=== PATIENT | male | born 1960 | race Caucasian/White ===

== ENCOUNTER 2022-05-24 01:43 | Day surgery (SDC) | payer OTHER, SELFPAY ==
[2022-05-18 14:37] VITALS: BMI 26.5
--- NOTE | 2022-05-18 14:51 | PC.NURSE ---
Report to the Outpatient Waiting Room, entrance under the green pavilion located off [facility], at time 0700 on date 05/24/22. OR Time: 0900. - You and your visitor will be asked a series of questions to screen for COVID 19 for your protection. - Only one visitor is allowed at this time. - The patient visitor is requested to leave or wait in car when not with patient. - A mask is required within the hospital. Patients may have clear liquids (water, carbonated beverages, clear teas, apple juice) until 3 hours prior to surgery with a maximum of 20 ounces. - No food from midnight until time of surgery Take the following medications with a SIP of water the morning of surgery: N/A Medications to discontinue per physician: N/A Date to take last dose: N/A Please no make-up, nail pashto, hairspray, perfume, deodorant, or body powder the day of surgery. No jewelry (including any body piercings) or valuables the day of surgery, leave them at home. Please take a shower or bath the night before, or the morning of, surgery with an antibacterial soap. Wear comfortable, loose fitting clothing. - Jewelry must be removed prior to entering the operating room. Rings and piercings that are not removed may be cut off. - The hospital will not accept responsibility for valuables. - Please leave all valuables, including medications, at home the day of surgery. If you are going home after surgery, a licensed tanker driver must drive you home. - NO public transportation without another adult. - We recommend that an adult stay with you for 24 hours following discharge. - We also recommend that you do not drive, make important decision, drink alcoholic beverages, or take any drugs that were not prescribed by your health care provider for at least 24 hours after your discharge time. Follow any additional instructions given to you from your surgeon. If you or anyone in your household have experienced Covid symptoms in the past week, please notify your surgeon or the nurse liaison at the phone number below for possible testing. Telephone instructions given to MARSHALL OLGUIN and asked if any additional questions and then verbalized understanding. Patient advised to call surgeon office or pre surgery nurse liaison [phone] if any additional questions.
--- NOTE | 2022-05-21 16:03 | P.PNAN_ITS ---
Anes - Initial Pre Proc Eval Procedure: Operation Date: 05/24/22 09:00 Proposed Procedures p Left Index Trigger Finger Release, Right Index Trigger Finger Release, - Varun Soto MD Date/Time: 05/21/22 16:03 Surgeon: Varun Soto MD Pre Op Diagnosis: Lt Index Trigger Finger, right Index Trigger Finge Patient Data Age: 61 Gender: M Height: 1.78 m Weight: 83.91 kg Allergies Allergy/AdvReac Type Severity Reaction Status Date / Time No Known Allergies Allergy Verified 05/18/22 14:37 Home Medications Medication Instructions Recorded Confirmed Type No Home Medications 05/13/22 05/18/22 History Patient hx anesthesia problems: none Family hx anesthesia problems: none Results Review: All pre-operative results and documents have been reviewed as part of the pre-operative evaluation. [facility] Past Medical History Medical History Arthritis Surgical History Surgical History History of carpal tunnel release of both wrists History of rotator cuff surgery Social History Social History Smoking status: Never smoker Alcohol intake: current Alcohol use details: 2/MONTH Substance use: never Substance use type: does not use Living arrangements: with family Additional occupation/education comments: Facility Tech Gender identity (if verbalized by the patient): Male Spiritual care concerns: No Anes - Eval Final PreProcedure Day of Procedure 05/21/22 16:03 Patient weight: overweight Heart: regular rate and rhythm Lungs: clear to auscultation and normal air movement Airway: Mallampati scale class II Neurological: alert and oriented Last oral intake: >/= 8 hours ASA classification: II Emergent: no Anesthetic plan: proceed Anesthesia type and monitoring: general GIVS Results Review: All pre-operative results and documents have been reviewed as part of the pre- operative evaluation. Informed Consent: The patient's anesthetic plan and its attendant risks and benefits were discussed with the patient/family/POA. Questions were solicited and answers provided to the satisfaction of the patient/family/POA.
[2022-05-24] MEDS: ACETAMINOPHEN 500 MG TABLET 1000 MG PO (08:00)
[2022-05-24] MEDS: KETOROLAC 15 MG/ML VIAL (*BKC) IV PUSH (08:00)
--- NOTE | 2022-05-24 08:14 | WPDHPUPDATE1 ---
History and Physical Update Update Date/Time: 05/24/22 08:14 History and Physical has been reviewed, including an updated exam of the patient. There are NO changes in the patient's condition. Risks, benefits, and alternatives have been discussed and questions answered. Patient agrees to proceed with procedure.
[2022-05-24 08:19] VITALS: BP 127/71; PULSE 86; RESP 14; TEMP 36.3; O2SAT 100
[2022-05-24] MEDS: LACTATED RINGERS 1,000 ML 30 ML IV CONT (08:25)
[2022-05-24] MEDS: ceFAZolin 2 GM/D5W 50 ML 2 GM/50 ML BAG IVPB (08:30)
[2022-05-24] MEDS: BUPIVACAINE HCL 0.25% PF 30 ML VIAL INFILTRATE (08:58)
[2022-05-24 09:10] VITALS: BP 82/51; PULSE 57; RESP 18; O2SAT 99
--- NOTE | 2022-05-24 09:20 | P.OP_ITS ---
Procedure Note - Detailed Date of Procedure 05/24/22 Pre-op Diagnosis Lt Index Trigger Finger, right Index Trigger Finge Post-op Diagnosis Same Procedure Performed right and left index trigger finger releases Surgeon Varun Soto MD Director Online Marketing Servando Cheung Anesthesia MAC and Local Description of Procedure The patient was identified and proper site identified. He was taken to the operating room and transferred to the OR table placing supine taking care to pad the torso and extremities. He was administered IV sedation. A nonsterile tourniquet was placed high on the right arm which was prepped and draped in the usual sterile fashion. Left upper extremity was prepped and draped in usual sterile fashion. Plan was to use an Esmarch bandage for the tourniquet on that side. Several cc of 1% plain lidocaine was injected into the subcutaneous tissue over the A1 christiane of the right index digit. The extremity was exsanguinated and the tourniquet was inflated to to 50 mmHg remaining up for about six minutes. A longitudinal incision was made over the A1 christiane. Subcutaneous tissue was bluntly dissected down to the christiane while protecting the neurovascular bundles. The A1 christiane was identified and then transected longitudinally in line with the incision and tendons. The tendons were delivered into the wound verifying the adequacy of the release. Hemostasis was carried out. The wound was irrigated with sterile saline. Skin edges were reapproximated with 4-0 nylon suture. Sterile dressing was applied. Tourniquet was released. The same procedure was performed on the left side for the left index digit A1 christiane with the exception that an Esmarch bandage was used to exsanguinate the hand and then was left as a tourniquet for 6 minutes around the distal forearm just proximal to the wrist . He tolerated the procedure well and was transferred back to a cart, then taken to the recovery area in stable condition. There were no known intraoperative complications. Estimated blood loss was negligible. Perioperative antibiotics were administered. Estimated Blood Loss 0 Tourniquet Time 12 ( 6 minutes for each upper extremity) Drains No Packing No Pathology None sent Complications No immediate complications Condition Stable Disposition PACU
[2022-05-24 09:25] VITALS: BP 84/52; PULSE 51; RESP 14; O2SAT 98
--- NOTE | 2022-05-24 09:37 | SUR.PHASEII ---
oral airway removed at 0936.
[2022-05-24 09:40] VITALS: BP 99/63; PULSE 64; RESP 16; O2SAT 99
[2022-05-24 10:10] VITALS: BP 116/72; PULSE 62; RESP 16
[2022-05-24 10:36] VITALS: BP 106/73; RESP 16
== END 2022-05-24 10:36 | disposition home or self-care (01) ==
PROVIDERS: PCP Family Medicine; Visit Provider Orthopaedic Surgery
PROC: (CPT 26055; principal; 2022-05-24 09:00)
DX: M65.321 Trigger finger, right index finger (principal); M65.322 Trigger finger, left index finger
CPT/HCPCS: 26055 ×2; A9270; J0690; J1885; J2250; J3010; J7120

== ENCOUNTER 2023-03-21 02:23 | Day surgery (SDC) | payer OTHER, SELFPAY ==
[2023-03-14 10:38] VITALS: BMI 26.2
--- NOTE | 2023-03-14 10:47 | PC.NURSE ---
Report to the Outpatient Waiting Room, entrance under the green pavilion located off [facility], at time 0930 on date 03/21/23. Planned Procedure Time: 1130. Time changes happen often and if your time is changed the preop area will call you the afternoon before. - You and your visitor will be asked to self-screen and do not enter if you have any COVID symptoms. - A mask is optional within the hospital at this time. Patients may have clear liquids (water, carbonated beverages, clear teas, apple juice) until 3 hours prior to surgery with a maximum of 20 ounces. 0830 - No food from midnight until time of surgery - Infants may have breast milk until 4 hours before surgery, formula 6 hours prior to surgery. - Children will be allowed to drink immediately following surgery. If applicable, please bring a bottle or sippy cup to assist with drinking. Juice, water, soda, and popsicles are readily available. For infants on formula, please bring formula the day of surgery. Pacifiers are allowed. Take the following medications with a SIP of water the morning of surgery: Atorvastatin, Zyrtec DO NOT STOP ANY OF YOUR OTHER PRESCRIPTION MEDICATIONS PRIOR TO SURGERY ?EXCEPT THE FOLLOWING Medications to discontinue per physician n/a Date to take last dose n/a Please no make-up, nail amharic, hairspray, perfume, deodorant, or body powder the day of surgery. No jewelry (including any body piercings) or valuables the day of surgery, leave them at home. Please take a shower or bath the night before, or the morning of, surgery with an antibacterial soap. Wear comfortable, loose fitting clothing. Children are encouraged to wear pajamas. - Jewelry must be removed prior to entering the operating room. Rings and piercings that are not removed may be cut off. - The hospital will not accept responsibility for valuables. - Please leave all valuables, including medications, at home the day of surgery. If you are going home after surgery, a licensed [employer] company flatbed driver must drive you home. - NO public transportation without another adult if you receive anesthesia. - We recommend that an adult stay with you for 24 hours following discharge. - We also recommend that you do not drive, make important decision, drink alcoholic beverages, or take any drugs that were not prescribed by your health care provider for at least 24 hours after your discharge time. For Pediatric surgeries, we recommend two adults accompany the child home. Follow any additional instructions given to you from your surgeon. If you or anyone in your household have experienced Covid symptoms in the past week, please notify your surgeon or the nurse liaison at the phone number below for possible testing. Telephone instructions given to Jose Antoine and asked if any additional questions and then verbalized understanding. Patient advised to call surgeon office or pre surgery nurse liaison [phone] if any additional questions.
--- NOTE | 2023-03-18 16:11 | P.PNAN_ITS ---
Anes - Initial Pre Proc Eval Procedure: Operation Date: 03/21/23 09:30 Proposed Procedures p Left Third Trigger Finger Release - Varun Soto MD Date/Time: 03/18/23 16:11 Surgeon: Varun Soto MD Pre Op Diagnosis: left third trigger finger Patient Data Age: 62 Gender: M Height: 1.78 m Weight: 83.1 kg Allergies Allergy/AdvReac Type Severity Reaction Status Date / Time No Known Allergies Allergy Verified 03/14/23 10:37 Home Medications Medication Instructions Recorded Confirmed Type atorvastatin 10 mg tablet 10 mg PO DAILY 03/08/23 03/14/23 History cetirizine 10 mg capsule (Zyrtec) 10 mg PO DAILY PRN Allergy Symptoms 03/08/23 03/14/23 History Patient hx anesthesia problems: none Family hx anesthesia problems: none Results Review: All pre-operative results and documents have been reviewed as part of the pre- operative evaluation. [facility] Past Medical History Medical History (Updated 03/18/23 @ 16:12 by Chris John MD) Arthritis Hyperlipidemia Trigger finger, left middle finger Trigger finger, left ring finger Surgical History Surgical History Acquired trigger finger of both index fingers bilateral index trigger finger releases May 24, 2022 History of carpal tunnel release of both wrists History of rotator cuff surgery Social History Social History Smoking status: Never smoker Alcohol intake: current Alcohol use details: 2/MONTH Substance use: never Substance use type: does not use Living arrangements: with family Occupation/Education: occupation Additional occupation/education comments: Facility Tech Gender identity (if verbalized by the patient): Male Spiritual care concerns: No Anes - Eval Final PreProcedure Day of Procedure 03/18/23 16:11 Patient weight: overweight Heart: regular rate and rhythm Lungs: clear to auscultation and normal air movement Airway: Mallampati scale class II Neurological: alert and oriented Last oral intake: >/= 8 hours ASA classification: II Emergent: no Anesthetic plan: proceed Anesthesia type and monitoring: general GIVS Results Review: All pre-operative results and documents have been reviewed as part of the pre- operative evaluation. Informed Consent: The patient's anesthetic plan and its attendant risks and benefits were discussed with the patient/family/POA. Questions were solicited and answers provided to the satisfaction of the patient/family/POA.
[2023-03-21] MEDS: ACETAMINOPHEN 500 MG TABLET 1000 MG PO (07:50)
[2023-03-21] MEDS: KETOROLAC 15 MG/ML VIAL (*BKC) IV PUSH (07:50)
[2023-03-21] MEDS: LACTATED RINGERS 1,000 ML 30 ML IV CONT (07:50)
[2023-03-21 08:13] VITALS: BP 138/78; PULSE 70; RESP 14; TEMP 36.9; O2SAT 100
--- NOTE | 2023-03-21 09:17 | WPDHPUPDATE1 ---
History and Physical Update Update Date/Time: 03/21/23 09:17 History and Physical has been reviewed, including an updated exam of the patient. There are NO changes in the patient's condition. Risks, benefits, and alternatives have been discussed and questions answered. Patient agrees to proceed with procedure.
[2023-03-21] MEDS: ceFAZolin 2 GM/D5W 50 ML 2 GM/50 ML BAG IVPB (09:26)
[2023-03-21] MEDS: BUPivacaine HCL 0.25% PF 30 ML VIAL INFILTRATE (09:54)
[2023-03-21 10:00] VITALS: BP 78/49; PULSE 53; RESP 14; O2SAT 96
--- NOTE | 2023-03-21 10:14 | P.OP_ITS ---
Procedure Note - Detailed Date of Procedure 03/21/23 Pre-op Diagnosis left third and fourth trigger fingers Post-op Diagnosis Same Procedure Performed left third and fourth trigger finger releases Surgeon Varun Soto MD Billet Cutter Jennifer Morales Anesthesia MAC and Local Description of Procedure The patient was identified and proper sites identified. He was taken to the operating room and transferred to the OR table placing him supine taking care to pad his torso extremities. Nonsterile tourniquet was placed high on the left arm. Left upper extremity was prepped and draped in usual sterile fashion. The patient was given IV sedation and several cc of .25% plain Marcaine were i nfiltrated into the subcutaneous tissue over the A1 christiane of the third and fourth digits. The extremity was exsanguinated the tourniquet was inflated to 250 millimeters of mercury remaining up for approximately 9 minutes. A longitudinal incision was made over the A1 christiane of the third digit. Subcutaneous tissue bluntly dissected identifying the christiane which was divided longitudinally in line with the incision. The tendons were delivered up into the wound verifying the adequacy the release. The same procedure was done for the fourth digit. Wounds were irrigated with sterile saline. Skin edges reapproximated 4-0 nylon suture. Sterile dressing was applied. Tourniquet was released. He tolerated the procedure well. He was transferred back to the patient cart taken to recovery area in stable condition. Estimated blood loss 0. Estimated Blood Loss 0 Tourniquet Time 9 Drains No Packing No Pathology None sent Complications No immediate complications Condition Stable Disposition Same day [facility] Billing Surgery - Charge Forward: Surgery Billing ([id number] x 2 (Two digits released))
[2023-03-21 10:30] VITALS: BP 96/50; PULSE 48; RESP 20
[2023-03-21 11:00] VITALS: BP 110/64; PULSE 63; RESP 20
[2023-03-21 11:24] VITALS: BP 120/73; PULSE 51; RESP 20
== END 2023-03-21 11:27 | disposition home or self-care (01) ==
PROVIDERS: PCP Family Medicine; Visit Provider Orthopaedic Surgery
PROC: (CPT 26055; principal; 2023-03-21 09:30)
DX: M65.332 Trigger finger, left middle finger (principal); M65.342 Trigger finger, left ring finger; E78.5 Hyperlipidemia, unspecified
CPT/HCPCS: 26055 ×2; A9270; J0690; J1885; J2250; J2405; J2704; J3010; J7120

== ENCOUNTER 2025-10-04 07:12 | Outpatient (CLI) | payer OTHER, SELFPAY ==
--- OUTSIDE RECORDS SUMMARY | 2025-10-04 07:17 | XMS_ITS | Clinical Summary ---
Author Organization [facility] Address [address] [place] [id number] Care Team Providers Care Netting Weaver Name Role Phone Tanja Arias MD Primary Care Provider [phone] Social History Tobacco Use Types Packs/Day Years Used Date Smoking Tobacco: Never Assessed Sex and Gender Information Value Date Recorded Sex Assigned at Not on file Legal Sex Male 7:29 PM CDT Gender Identity Not on file Sexual Orientation Not on file Plan of Treatment Health Maintenance Due Date Last Done Comments Colorectal Cancer Screening Colonoscopy (10 Years) 1960 Annual Physical 1963 Hepatitis C 1978 Pneumococcal Vaccine: 50+ Years (1 of 1 - PCV) 2010 COVID-19 Vaccine (2 - 2024-2 6 season) 2025 10/06/2021 Influenza Adult (#1) 2025 08/26/2020 DTaP, Tdap and Td Vaccines ( 2 - Td or Tdap) 01/23/2029 01/23/2019 RSV Immunization or 60+ Years (1 - 1-dose 75+ series) 2035 Zoster Vaccines Completed 10/04/2018, 08/02/2018 Hepatitis A Vaccines Aged Out No long er eligible based on patient's age to complete this topic Meningococcal B Vaccine Aged Out No l onger eligible based on patient's age to complete this topic Meningococcal Vaccine Aged Out No marely mikki eligible based on patient's age to complete this topic RSV Immunizations Under 20 Months Aged Out No longer eligible b ased on patient's age to complete this topic Insurance [facility] Care Teams Netting Weaver Relationship Specialty Start Date End Date Tanja Arias MD [address] [facility] [address] [place] [address] PCP - General FAMILY PRACTICE 12/21/21
--- NOTE | 2025-10-04 07:29 | ECG_ITS ---
Test Date: 2025-10-04 07:38:21 Measurements Intervals [place] Rate: 71 P: 69 [place]: 133 QRS: 10 QRSD: 78 T: 58 QT: 363 QTc: 397 Interpretive Statements SINUS RHYTHM NORMAL ELECTROCARDIOGRAM No previous ECG available for comparison Electronically Signed On 10-04-2025 13:19:50 EMPLOYMENT LAW SPECIALIST by David Dolan M.D.
== END 2025-10-04 07:13 | disposition home or self-care (01) ==
LOC: ANHCARD 07:16
PROVIDERS: PCP Family Medicine; Visit Provider Anesthesiology
DX: E78.5 Hyperlipidemia, unspecified (principal)
CPT/HCPCS: 93005

== ENCOUNTER 2025-10-08 03:17 | Day surgery (SDC) | payer OTHER, SELFPAY ==
[2025-09-30 15:11] VITALS: BMI 25.9
--- NOTE | 2025-09-30 15:19 | PC.NURSE ---
[facility] has started construction of its new state of the art ER which will open Spring 2026. With this, we anticipate parking may be a challenge for some our surgical patients and families. Parking spaces are limited but are available for all Surgical, obstetrics, and ER patients sharing this lot. If you arrive and find you are having a hard time finding a parking space, please note that we understand the challenges, please drive around the hospital and park near Hospital Entrance 1. When you enter this entrance, you can ask a volunteer to direct or take you back to the surgical waiting area to check in. We appreciate everyone?s understanding of these expected challenges while we build for your future. Report to the Outpatient Waiting Room, entrance under the green pavilion located off [address], at time 1000_ on date _10/08/25. Planned Procedure Time: 1200_.? Time changes happen often and if your time is changed the preop area will call you the afternoon before. - You and your visitor will be asked to self-screen and do not enter if you have any COVID symptoms. Please call surgeon if you need to reschedule. - A mask is optional within the hospital at this time. Patients may have clear liquids (water, carbonated beverages, clear teas, apple juice) until 3 hours prior to surgery with a maximum of 20 ounces. - No food from midnight until time of surgery and no smoking, or chewing tobacco (or any form of nicotine). No chewing gum, candy or mints. Take only the following medications with a SIP of water on the morning of surgery: ____NONE DO NOT STOP ANY OF YOUR OTHER PRESCRIPTION MEDICATIONS PRIOR TO SURGERY EXCEPT THE FOLLOWING Hold all vitamins and supplements for 3 days per anesthesiologist. Medications to discontinue per physician Date to take last dose Please no make-up, nail macanese, hairspray, perfume, deodorant, or body powder the day of surgery.? No jewelry (including any body piercings) or valuables the day of surgery, leave them at home.? Please take a shower or bath the night before, or the morning of, surgery with an antibacterial soap.? Wear comfortable, loose fitting clothing.? Children are encouraged to wear pajamas. - Jewelry must be removed prior to entering the operating room.? Rings and piercings that are not removed may be cut off. - The hospital will not accept responsibility for valuables.? - Please leave all valuables, including medications, at home the day of surgery. If you are going home after surgery, a licensed race car driver must drive you home.? - NO public transportation without another adult if you receive anesthesia. - We recommend that an adult stay with you for 24 hours following discharge. - We also recommend that you do not drive, make important decision, drink alcoholic beverages, or take any drugs that were not prescribed by your health care provider for at least 24 hours after your discharge time. For Pediatric surgeries, we recommend two adults accompany the child home. Follow any additional instructions given to you from your surgeon. Telephone instructions given to _PATIENT__and asked if any additional questions and then verbalized understanding. Patient advised to call surgeon office or pre surgery nurse liaison [phone] if any additional questions.
--- NOTE | 2025-10-07 11:59 | P.HP_ITS ---
H&P: HPI History of Present Illness Date/Time: 10/07/25 11:59 Chief Complaint: Right Trigger thumb Narrative: 64-year-old male presents today for A1 christiane release of his right trigger thumb. Patient has been having symptoms in the thumb for about 6 months. Over the last 2 months he has been unable to actively flex the IP joint and thumb due to severe pain. Patient has had trigger finger surgeries in the past in the fingers and did well with him. He declined nonsurgical treatment for the thumb and wished to proceed directly to surgery. Review of Systems Review of Systems: All systems reviewed & are unremarkable except as noted in HPI and below PMFSH Past Medical History Medical History (Updated 09/08/25 @ 10:06 by Marcial Brantley MD) Hyperlipidemia Arthritis Surgical History Surgical History (Updated 09/06/25 @ 07:45 by Deena Menezes [facility]) History of knee replacement rt Trigger finger, left ring finger Trigger finger release March 21, 2023 Trigger finger, left middle finger trigger finger release March 21, 2023 Acquired trigger finger of both index fingers bilateral index trigger finger releases May 24, 2022 History of rotator cuff surgery History of carpal tunnel release of both wrists Social History Social History (Updated 09/06/25 @ 07:40 by Lucy De Anda [facility]) Smoking status: Never smoker Alcohol intake: current Alcohol use details: 2 PER MONTH Substance use: never Substance use type: does not use Lack of Transportation: No Lack of Food: Never True Current Housing: I Have Housing Concerned About Future Housing: No Difficulty Paying Gas/Electric Bills: No Difficulty Paying for Meds: No Currently Unemployed: No Education: High School Diploma/GED Difficulty w/ Childcare or Family Care: No Living arrangements: with family Occupation/Education: occupation Additional occupation/education comments: Facility Tech Gender identity (if verbalized by the patient): Male Spiritual care concerns: No Meds Home Medications and Allergies Home Medications ?Medication ?Instructions ?Recorded ?Confirmed ?Type atorvastatin 10 mg tablet 20 mg PO DAILY 09/06/2509/08 History Allergies Allergy/AdvReac Type Severity Reaction Status Date / Time No Known Allergies Allergy Verified 09/30/25 15:10 Exam Narrative: 64-year-old male alert pleasant. His ri ght thumb he has moderately severe tenderness at the A1 christiane. He has active triggering thumb with range of motion. 2+ radial pulse. He denies any numbness or tingling in the thumb. He has had carpal tunnel release to both of his wrists in the past. There is no swelling or redness noted about the thumb. Resp: Auscultation: clear to auscultation bilaterally Cardio: Rate: regular rate Rhythm: regular rhythm Assessment and Plan Assessment and plan (1) Trigger thumb, right thumb: Code(s): M65.311 - Trigger thumb, right thumb Status: Acute Plan 64-year-old male who has a right trigger thumb. Again he has had trigger finger releases in the left long and index finger. He declined nonsurgical treatment and would rather proceed with surgery. Surgical procedures well as the risks and complications were discussed in detail all questions were answered and we will proceed. Patient will avoid any anti-inflammatories or aspirin products 1 week prior to surgery
[2025-10-08] VITALS (9 sets, daily range): BP systolic 96–122; BP diastolic 56–76; PULSE 60–75; RESP 12–18; TEMP 36.6–36.8; O2SAT 98–100; BMI 26.2
--- OUTSIDE RECORDS SUMMARY | 2025-10-08 03:19 | XMS_ITS | Clinical Summary ---
Author Organization [facility] Address [address] [place] [id number] Care Team Providers Care Crisis Therapist Name Role Phone Tanja Arias MD Primary Care Provider [phone] Social History Tobacco Use Types Packs/Day Years [...] patient's age to complete this topic Insurance [facility] Care Teams Crisis Therapist Relationship Specialty Start Date End Date Tanja Arias MD [address] [facility] [address] [place] [address] PCP - General FAMILY PRACTICE 12/21/21
--- OUTSIDE RECORDS SUMMARY | 2025-10-08 03:19 | XMS_ITS | Clinical Summary ---
Author Organization [facility] Address [address] [place] [address] Care Team Providers Care Supervisor Typesetting Name Role Phone Tanja Arias MD Primary Care Provider Shelby Gamble MD Unavailable [phone] Hermann Santamaria MD Unavailable [phone] Allergies No known active allergies Medications * This document contains information received from the source organization and may not represent a complete record from that organization. 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 Assessment & Plan (09/02/2023 9:02 AM CDT): Follow. Coronary atherosclerosis due to calcified marley ry lesion 08/31/2023 Hyperlipidemia 08/31/2023 Optic nerve cupping of both eyes 03/04/2023 Assessment & Plan (12/20/2024 8:51 AM RAILROAD COMMISSIONER): Likely physiologic cupping. Prior OCT nerve without thinning. Photos of optic nerves today as well. Follow. Assessment & Plan (09/02/2023 8:57 AM CDT): Likely physiologic cupping. Prior OCT nerve without thinning. Photos of optic nerves today as well. Follow. Assessment & Plan (03/04/2023 9:05 AM CDT): Likely physiologic cupping. OCT nerve without thinning. Will recheck IOP with Ta at next follow up visit. Choroidal nevus, both eyes 03/04/2023 Assessment & Plan (12/20/2024 8:51 AM RAILROAD COMMISSIONER): Juxtapapillary flat nevus OS, repeat [facility] photos today appear unchanged. Return for DFE, repeat [facility] photos in 1 year. Assessment & Plan (09/02/2023 8:56 AM CDT): Juxtapapillary flat nevus OS, repeat [facility] photos today appear unchanged. Return for DFE, repeat [facility] photos in 1 year. Assessment & Plan (03/04/2023 9:06 AM CDT): Juxtapapillary flat nevus OS, [facility] photos today. Return for DFE, repeat [facility] photos in 6 months. If no changes can follow with annual DFE, photos. Cataract, nuclear sclerotic, both eyes Assessment & Plan (12/20/2024 8:51 AM RAILROAD COMMISSIONER): NVS, follow. Can wear OTC readers prn. Assessment & Plan (03/04/2023 9:06 AM CDT): NVS, follow. Immunizations Immunization Administration Dates Next Due COVID-19 mRNA (HauteDay) 0.3 m L (30 mcg) vaccine (12 years and up) 09/10/2024 Influenza, Trivalent, Cell C ulture-based MDCK, Preservative Free, Antibiotic Free, Intramuscular 08/07/2025,09/10/2024 Surgical History Surgery Date Site/Laterality Comments KNEE SURGERY Right multiple knee surgery TRIGGER FINGER RELEASE 11/07/2021 - 11/06/2022 Bilateral CARPAL TUNNEL RELEASE Bilateral ROTATOR CUFF REPAIR Left COLONOSCOPY JOINT REPLACEMENT 10/17/2023 Right total knee Medical History Medical History Date Comments Hearing loss Tinnitus Arthritis 10/2023 Hyperlipidemia CAD (coronary artery disease) H/O exercise stress test 09/2023 post ek g changes notes Family History Medical History Relation Name Comments Pneumonia Father No Known Problems Mother Relation Name Status Comments Father Mother Alive Social History Tobacco Use Types Packs/Day Years Used Date Smoking Tobacco: Never Smokeless Tobacco: Never Tobacco Cessation:Counseling Given: Not Answered [facility] Utilities Answer Date Recorded In the past 12 months has [email or web address] electric, gas, oil, or water company threatened to shut off services in your home? No 10/18/2023 Social Connection and Isolation Panel Answer Date Recorded In a typical week, how many times do you talk on the phone with family, friends, or neighbors? More than three times a week 10/18/2023 How often do you get togethe r with friends or relatives? More than three times a week 10/18/2023 How often do you attend [facility] or restoration services? More than 4 times per year 10/18/2023 Do you belong to any clubs o r organizations such as mandaen groups, unions, fraternal or athletic groups, or school groups? No 10/18/2023 How often do you attend meet ings of the clubs or organizations you belong to? Never 10/18/2023 Are you , , di vorced, , never , or living with a partner? 10/18/2023 AUDIT-C Answer Date Recorded Q1: How often do you have a drink containing alc ohol? Monthly or less 10/17/2023 Q2: How many drinks containi ng alcohol do you have on a typical day when you are drinking? 1 or 2 10/17/2023 Q3: How often do you have si x or more drinks on one occasion? Never 10/17/2023 Overall Financial Resource Strain (CARDIA) Answe r Date Recorded How hard is it for you to pa y for the very basics like food, housing, medical care, and heating? Not hard at all 10/18/2023 Hunger Vital Sign Answer Date Recorded Within the past 12 months, y ou worried that your food would run out before you got the money to buy more. Never true 10/18/20 23 Within the past 12 months, t he food you bought just didn't last and you didn't have money to get more. Never true 10/18/2023 PRAPARE - Transportation Answer Date Re corded In the past 12 months, has l ack of transportation kept you from medical appointments or from getting medications? No 10/07 In the past 12 months, has l ack of transportation kept you from meetings, work, or from getting things needed for daily living? No 10/18/2023 Housing Stability Vital Sign Answer Juan J e Recorded In the last 12 months, was t here a time when you were not able to pay the mortgage or rent on time? No 10/18/2023 In the last 12 months, how many places have you lived? 1 10/18/2023 In the last 12 months, was t here a time when you did not have a steady place to sleep or slept in a custodial (including now)? No 10/18/2023 Personal Safety Answer Date Recorded Have you ever been in or are you currently in a harmful physical or emotional relationship or is someone making you feel afraid or unsafe? Denies 10/17/2023 Sex and Gender Information Value Date Recorded Sex Assigned at Not on file Legal Sex Male 2:41 AM RAILROAD COMMISSIONER Gender Identity Male 03/25/2022 4:39 PM CDT Sexual Orientation Straight 03/25/2022 4: 39 PM CDT Occupation Industry Job Start Date Job End Date Demand Generation Manager at [employer] Not on file Not on file Not on file Last Filed Vital Signs Vital Sign Reading Time Taken Comments Blood Pressure 123/79 10/18/2023 11:24 AM RAILROAD COMMISSIONER Pulse 77 10/18/2023 11:24 AM RAILROAD COMMISSIONER Temperature 36.6 C (97.9 F) 10/18/2023 11:24 AM RAILROAD COMMISSIONER Respiratory Rate 19 10/18/2023 11:24 AM RAILROAD COMMISSIONER Oxygen Saturation 100% 10/18/2023 11:24 AM RAILROAD COMMISSIONER Inhaled Oxygen Concentration - - Weight 83 kg (183 lb) 10/19/2024 8:08 AM RAILROAD COMMISSIONER Height 177.8 cm (5' 10) 10/19/2024 8:08 AM RAILROAD COMMISSIONER Body Mass Index 26.26 10/19/2024 8:08 AM RAILROAD COMMISSIONER Plan of Treatment Health Maintenance Due Date Last Done Comments Colon Cancer Screening-Colonoscopy 1960 Depression Screening 1960 Hepatitis C Screening 1960 Prostate Cancer Screening-PSA 1960 Hepatitis B Screening 1978 Regular Well Visit/Exam 18-64 1978 Covid-19 Vaccine ( season) 2025 09/10/2024, 10/06/2021, 12/17/2020, Additional history exists DTaP/Tdap/Td Vaccine (2 - Td or Tdap) 01/23/2029 01/23/2019 Zoster Vaccine Completed 10/04/2018, 08/02/2018 Influenza Vaccine Completed 08/07/2025, , 08/26/2020 Pneumococcal vaccine <65 Aged Out No longer eligible based on patient's age to complete this topic Medical Devices Implanted Type Area Agricultural Researcher Device Identifier Shelf Expiration Date Model / Serial / Lot [employer] Simplex P Radiopaque Full Dose Cement Bone Sterile 6191-1-010 - [id number] - [id number] Implanted:Qty: 2 on 10/17/2023 by Hermann Santamaria MD at [facility] Bone Cement Right: Knee [employer] 12/07/2025 6191-1-010 / [id number] / [id number] [employer] Elisha Ii Legion Spc Posterior Stabilize Knee Right 8 Component [id number] - [id number] - [id number] Implanted:Qty: 1 on 10/17/2023 by Hermann Santamaria MD at [facility] Right: Knee [employer] [id number] 02/05/2024 [id number] / [id number] / [id number] [employer] Legion 9mm Posterior Stabilized High Flexion Knee 7-8 Insert [id number] - [id number] - [id number] Implanted:Qty: 1 on 10/17/2023 by Hermann Santamaria MD at [facility] Right: Knee [employer] [id number] 05/16/2033 [id number] / [id number] / [id number] [employer] Elisha Ii Cemented Knee Right 8 Baseplate Tibial Titanium [id number] - [id number] - [id number] Implanted:Qty: 1 on 10/17/2023 by Hermann Santamaria MD at [facility] Right: Knee [employer] [id number] 02/28/2033 [id number] / [id number] / [id number] [employer] Elisha Ii [id number] Biconvex Component Patellar [id number] - [id number] - [id number] Implanted:Qty: 1 on 10/17/2023 by Hermann Santamaria MD at [facility] Right: Knee [employer] [id number] 07/26/2033 [id number] / [id number] / [id number] Insurance [employer] Advance Directives For more information, please contact: [phone] * Full Code (Latest Code Status on File) Date Activated Date Inactivated Comments 10/17/2023 2:58 PM 10/18/2023 8:56 PM Care Teams Supervisor Typesetting Relationship Specialty Start Date End Date Tanja Arias MD PCP - General Shactor Helper 01/14/22 Shelby Gamble MD Consulting Physician Cardiology 10/05/23 Hermann Santamaria MD [id number] [facility] [address] [address] Consulting Physician Orthopedic Surgery 10/18/23
[2025-10-08] MEDS: LACTATED RINGERS 1,000 ML 30 ML IV CONT (10:40)
[2025-10-08] MEDS: KETOROLAC 15 MG/ML VIAL (*BKC) IV PUSH (10:45)
[2025-10-08] MEDS: ACETAMINOPHEN 500 MG TABLET 1000 MG PO (10:45)
--- NOTE | 2025-10-08 11:37 | WPDHPUPDATE1 ---
History and Physical Update Update Date/Time: 10/08/25 11:37 History and Physical has been reviewed, including an updated exam of the patient. There are NO changes in the patient's condition. Risks, benefits, and alternatives have been discussed and questions answered. Patient agrees to proceed with procedure.
--- NOTE | 2025-10-08 12:02 | P.PNAN_ITS ---
Anes - Initial Pre Proc Eval Procedure: Operation Date: 10/08/25 12:00 Proposed Procedures p A-1 Jaskaran Release Right Thumb - Marcial Brantley MD Date/Time: 10/08/25 12:02 Surgeon: Marcial Brantley MD Pre Op Diagnosis: right trigger thumb Patient Data Age: 64 Gender: M Height: 1.78 m Weight: 83 kg Last Vital Signs Temp 36.8 C 10/08/25 10:20 Pulse 75 10/08/25 10:20 Resp 18 10/08/25 10:20 BP 122/75 10/08/25 10:20 Pulse Ox 100 10/08/25 10:20 O2 Del Method Room Air 10/08/25 10:20 Allergies Allergy/AdvReac Type Severity Reaction Status Date / Time No Known Allergies Allergy Verified 10/08/25 10:27 Home Medications ?Medication ?Instructions ?Recorded ?Confirmed ?Type atorvastatin 10 mg tablet 20 mg PO DAILY 09/06/25 1201/01 History Patient hx anesthesia problems: none Family hx anesthesia problems: none Results Review: All pre-operative results and documents have been reviewed as part of the pre-op erative evaluation. [facility] Past Medical History Medical History Hyperlipidemia Arthritis Surgical History Surgical History History of knee replacement rt Trigger finger, left ring finger Trigger finger release March 21, 2023 Trigger finger, left middle finger trigger finger release March 21, 2023 Acquired trigger finger of both index fingers bilateral index trigger finger releases May 24, 2022 History of rotator cuff surgery History of carpal tunnel release of both wrists Social History Social History Smoking status: Never smoker Alcohol intake: current Alcohol use details: 2 PER MONTH Substance use: never Substance use type: does not use Lack of Transportation: No Lack of Food: Never True Current Housing: I Have Housing Concerned About Future Housing: No Difficulty Paying Gas/Electric Bills: No Difficulty Paying for Meds: No Currently Unemployed: No Education: High School Diploma/GED Difficulty w/ Childcare or Family Care: No Living arrangements: with family Occupation/Education: occupation Additional occupation/education comments: Facility Tech Gender identity (if verbalized by the patient): Male Spiritual care concerns: No Anes - Eval Final PreProcedure Day of Procedure 10/08/25 12:02 Patient weight: normal Heart: regular rate and rhythm Lungs: clear to auscultation Airway: Mallampati scale class 1 Neurological: alert and oriented Last oral intake: >/= 8 hours ASA classification: II Emergent: no Anesthetic plan: proceed Anesthesia type and monitoring: general GIVS and standard monitoring Results Review: All pre-operative results and documents have been reviewed as part of the pre- operative evaluation. Informed Consent: The patient's anesthetic plan and its attendant risks and benefits were discussed with the patient/family/POA. Questions were solicited and answers provided to the satisfaction of the patient/family/POA.
[2025-10-08] MEDS: SCOPOLAMINE 1 MG PATCH 1 PATCH TRANSDERM (12:06)
[2025-10-08] MEDS: ceFAZolin 2 GM in SODIUM CHLORIDE 0.9% IV 50 ML 100 ML IVPB (12:09)
[2025-10-08] MEDS: LIDOCAINE 1% LOCAL INJ 10 ML VIAL INFILTRATE (12:36)
--- NOTE | 2025-10-08 12:53 | P.OP_ITS ---
Procedure Note - Detailed Date of Procedure 10/08/25 Pre-op Diagnosis right trigger thumb Post-op Diagnosis Same Procedure Performed A1 christiane release right thumb Surgeon Marcial Brantley MD [employer] Anesthesia General Description of Procedure Her patient was brought to the operating room and LMA general anesthesia administered in the right arm prepped draped usual fashion. He received 2 g of Ancef preoperatively. Limb was exsanguinated tourniquet elevated to 250 mmHg. A chevron-shaped longitudinally oriented incision was made centered over the A1 christiane at the volar base of the right thumb. 2 cc 1% lidocaine were injected for local anesthesia. The longitudinal blunt dissection carried down to the flexor tendon sheath. Distal margin of the flexor tendon sheath A1 christiane was identified and the A1 christiane released from its distal extent proximally completing the release under continuous direct visualization. Tourniquet was released. Hemostasis was achieved with few minutes of pressure. The the tendon showed slight the thickening in its central aspect. There was no impediment to range of motion. Skin was closed with 5 0 nylon suture a soft bulky dressing applied. No known complications.
== END 2025-10-08 15:10 | disposition home or self-care (01) ==
PROVIDERS: PCP Family Medicine; Visit Provider Orthopaedic Surgery
PROC: (CPT 26055; principal; 2025-10-08 12:00)
DX: M65.311 Trigger thumb, right thumb (principal)
CPT/HCPCS: 26055; J0690; A9270; J1100; J1885; J2003; J2250; J2405; J2704; J3010; J7120